=== PATIENT | female | born 1940 | race Caucasian/White ===

== ENCOUNTER 2016-03-15 13:50 | Inpatient (IN) | payer MEDICARE, OTHER ==
[~2016-03-15] VITALS: Ht 167.6 cm; Wt 84.2 kg
[2016-03-15] VITALS (24 sets, daily range): BP systolic 71–139; BP diastolic 47–94
[2016-03-15] MEDS ORDERED: AMIODARONE HCL 900 MG IV ONE (13:55)
[2016-03-15] MEDS ORDERED: AMIODARONE HCL 900 MG in DEXTROSE 500 ML IV SCH ×3 (14:14→21:15)
[2016-03-15] MEDS: NOREPINEPHRINE BITARTRATE 250 ML IV SCH (14:15)
[2016-03-15] MEDS ORDERED: AMIODARONE HCL 150 MG in D5W 5% 100 ML IV ONE (14:15)
[2016-03-15] MEDS ORDERED: ENOXAPARIN SOD 100 MG/1 ML SYRINGE SC ONE (14:15)
[2016-03-15 14:16] LABS: DEFINITIVE VIEW TRANSMISSION; Hematocrit 45.4 % (36.0-46.0); Mean Corpuscular Hemoglobin 31.9 pg (28.0-32.0); Mean Corpuscular Hgb Conc. 33.1 g/dL (32.0-36.0); Mean Corpuscular Volume 96.3 fL (80.0-100.0); Mean Platelet Volume 9.4 fL (7.4-10.4); Red Cell Distribution Width 13.9 % (11.6-16.0); SUSPECT VIEW TRANSMISSION
[2016-03-15 14:19] LABS: Metamyelocytes % 0; Myelocytes % 0; Promyelocytes % 0; Reactive Lymphocytes 0
[2016-03-15] MEDS ORDERED: SODIUM BICARBONATE 8.4% INJ 50ML SYRINGE ONE (14:31)
[2016-03-15] MEDS ORDERED: EPINEPHrine HCL 1 MG/10 ML SYRG IV ONE (14:45)
[2016-03-15] MEDS ORDERED: SODIUM BICARBONATE 8.4% INJ 50ML SYRINGE IV ONE (14:45)
[2016-03-15] MEDS ORDERED: SODIUM BICARBONATE 8.4 % INJ 50ML VIAL IV ONE ×2 (14:45)
[2016-03-15] MEDS: MIDAZOLAM DRIP 100 mg/100mL NS 100 ML IV SCH ×2 (15:05)
[2016-03-15] MEDS ORDERED: PROPOFOL 100 ML IV SCH ×2 (15:05)
[2016-03-15] MEDS ORDERED: MORPHINE SULF INJ 2 MG/ML SYRINGE 1ML IV PRN (15:15)
[2016-03-15] MEDS ORDERED: ONDANSETRON HCL 4 MG/2 ML VIAL IV PRN (15:15)
[2016-03-15] MEDS ORDERED: NITROGLYCERIN 0.4 MG SL TAB SL PRN (15:15)
[2016-03-15 15:16] LABS: Platelet Clumps MANY; Platelet Estimate Adequate
[2016-03-15 15:17] LABS: Platelet Count (auto) 318 10^3/uL (140-450)
[2016-03-15 15:24] LABS: Albumin 2.9 g/dL (3.4-5.0); BUN/Creatinine Ratio 13.6; Bilirubin, Total 0.2 mg/dL (0.2-1.0); Calcium 7.7 mg/dL (8.5-10.1); Lactic Acid 13.4 mmol/L (0.4-2.0); Magnesium 2.8 mg/dL (1.6-2.6); Total Protein 6.3 g/dL (6.4-8.2)
[2016-03-15 15:28] LABS: INR 1.08 (0.9-1.15); Partial Thromboplastin Time 24.6 sec (22.64-33.71); Prothrombin Time 11.1 sec (9.37-12.3)
[2016-03-15] MEDS ORDERED: cefTRIAXone 1GM/50ML D5W 50 ML IV ONE (15:30)
[2016-03-15] MEDS ORDERED: VANCOMYCIN PER PHARMACY 0 MG IV SCH (15:30)
[2016-03-15 15:59] LABS: REFLEX LACTIC ACID YES OR NO YES
[2016-03-15 16:07] LABS: Potassium 2.7 mmol/L (3.5-5.1)
[2016-03-15] MEDS ORDERED: POTASSIUM CHL 20MEQ/100ML 100 ML IV ONE (16:15)
[2016-03-15] MEDS ORDERED: LIDOCAINE 1% IV SCH (16:15)
[2016-03-15] MEDS ORDERED: POTASSIUM CHL IV SCH (16:15)
[2016-03-15] MEDS ORDERED: ENOXAPARIN SOD 80 MG/0.8ML SYRINGE SC ONE ×2 (16:15)
[2016-03-15] MEDS: SODIUM CHLORIDE 0.9% 1,000 ML IV SCH (16:29)
[2016-03-15] MEDS ORDERED: POTASSIUM CHL 20MEQ/100ML 100 ML IV SCH (16:30)
[2016-03-15] MEDS ORDERED: DEXTROSE (50%) 50ML SYRG IV PRN (16:45)
[2016-03-15] MEDS ORDERED: ASPirin 81 mg TAB PO ONE (16:45)
[2016-03-15 17:10] LABS: Lactic Acid 7.3 mmol/L (0.4-2.0)
[2016-03-15 17:11] LABS: REFLEX LACTIC ACID YES OR NO NO
[2016-03-15 17:22] LABS: Urine Bilirubin Negative (Negative); Urine Color Yellow (Yellow); Urine Mucus FEW (None Seen); Urine Nitrite Negative (Negative); Urine RBC 10 /hpf (0 - 4); Urine Squamous Epithelial Cell FEW /hpf (<5); Urine Urobilinogen Normal (Negative)
[2016-03-15 17:25] LABS: Urine Blood 2+ /uL (Negative); Urine Glucose 4+ mg/dL (Normal); Urine Ketone 1+ (Negative)
[2016-03-15] MEDS: LIDOCAINE 1% IV SCH ×2 (17:50→19:45)
[2016-03-15] MEDS: POTASSIUM CHL IV SCH ×2 (17:50→19:45)
[2016-03-15 18:08] LABS: B-Type Natriuretic Peptide 17.3 pg/mL (0-100)
[2016-03-15] MEDS: ACCU-CHEK COMFORT CURVE STRIP VI SCH (18:34)
[2016-03-15] MEDS: InsuLIN REG 1unit/0.01ml Soln (100units/ml) SC SCH (18:35)
[2016-03-15 18:41] LABS: Temperature: 21.4 C (20.0-25.0)
[2016-03-15] MEDS: PROPOFOL 100 ML IV SCH (20:00)
[2016-03-16] VITALS (99 sets, daily range): BP systolic 78–124; BP diastolic 48–78
[2016-03-16] MEDS: ACCU-CHEK COMFORT CURVE STRIP VI SCH ×4 (00:08→18:22)
[2016-03-16] MEDS: SODIUM BICARBONATE 50ML VIAL 150 ML in D5W 5% 1,000 ML IV SCH ×2 (00:38→10:50)
[2016-03-16] MEDS: MIDAZOLAM DRIP 100 mg/100mL NS 100 ML IV SCH ×2 (01:47→15:22)
[2016-03-16] MEDS: SODIUM CHLORIDE 0.9% 1,000 ML IV SCH (03:52)
[2016-03-16 03:54] LABS: Hemoglobin 13.9 g/dL (12.2-16.2); Mean Corpuscular Hemoglobin 31.4 pg (28.0-32.0); Mean Corpuscular Hgb Conc. 33.1 g/dL (32.0-36.0); Mean Corpuscular Volume 95.1 fL (80.0-100.0); Platelet Count (auto) 352 10^3/uL (140-450); Red Cell Distribution Width 14.3 % (11.6-16.0); SUSPECT VIEW TRANSMISSION; White Blood Cell 24.7 10^3/uL (4.4-10.8)
[2016-03-16 04:03] LABS: Metamyelocytes % 0; Myelocytes % 0; Promyelocytes % 0; Reactive Lymphocytes 0
[2016-03-16 04:17] LABS: Albumin 3.2 g/dL (3.4-5.0); BUN/Creatinine Ratio 20.6; Potassium 3.7 mmol/L (3.5-5.1)
[2016-03-16 04:20] LABS: Bilirubin, Total 0.2 mg/dL (0.2-1.0); Total Protein 6.5 g/dL (6.4-8.2)
[2016-03-16] MEDS: NOREPINEPHRINE BITARTRATE 250 ML IV SCH (04:30)
[2016-03-16 04:46] LABS: Hypersegmented Neutrophils Present; Platelet Estimate Adequate
[2016-03-16 04:47] LABS: RBC Morphology Normal
[2016-03-16] MEDS ORDERED: ENOXAPARIN SOD 80 MG/0.8ML SYRINGE SC SCH ×2 (06:00→18:00)
[2016-03-16] MEDS: InsuLIN REG 1unit/0.01ml Soln (100units/ml) SC SCH ×4 (06:11→18:22)
[2016-03-16] MEDS ORDERED: DOPamine 1600MCG/ML 250 ML IV ONE (07:34)
[2016-03-16] MEDS: DOPamine 1600MCG/ML 250 ML IV SCH (07:46)
[2016-03-16] MEDS: VANCOMYCIN 1GM/250ML D5W 250 ML IV SCH ×2 (07:50→18:21)
[2016-03-16] MEDS ORDERED: cefTRIAXone 1GM/50ML D5W 50 ML IV SCH (09:00)
[2016-03-16] MEDS ORDERED: CLOPIDOGREL 300 MG TAB PO ONE ×2 (09:45→13:30)
[2016-03-16] MEDS ORDERED: ANAS1TAB6 PO (09:59)
[2016-03-16] MEDS ORDERED: DIAZ10TA3 PO (09:59)
[2016-03-16] MEDS ORDERED: SERT-160 PO (09:59)
[2016-03-16] MEDS ORDERED: NAP500T PO (09:59)
[2016-03-16] MEDS: ASPirin 81 mg TAB PO SCH (10:00)
[2016-03-16] MEDS: POTASSIUM CHL 20MEQ/100ML 100 ML IV SCH ×2 (10:21→15:22)
[2016-03-16] MEDS ORDERED: LIDOCAINE 2%HCL (LOCAL ANESTH.) INJ 20ML MDV ONE (11:00)
[2016-03-16] MEDS ORDERED: IODIXANOL 320MG/ML 100ML BTL IV ONE (11:00)
[2016-03-16] MEDS ORDERED: PIPERACILLIN-TAZOB 3.375GM/D5W100ML IV SCH (12:00)
[2016-03-16] MEDS ORDERED: ATROPINE SULF 0.5 MG/5ML SYR ONE (12:10)
[2016-03-16] MEDS ORDERED: ANGIOMAX 250 MG VIAL IV ONE ×2 (12:10→13:10)
[2016-03-16] MEDS ORDERED: SODIUM CHL 0.9% 50 ML ONE ×2 (12:10→13:10)
[2016-03-16] MEDS ORDERED: EPINEPHrine HCL 1 MG/10 ML SYRG ONE (12:10)
[2016-03-16] MEDS ORDERED: EPTIFIBATIDE INJ (2MG/ML) 10ML VIAL IV ONE ×2 (12:10→12:37)
[2016-03-16] MEDS ORDERED: ADENOSINE 6 MG/2 ML INJ IV ONE (12:40)
[2016-03-16] MEDS ORDERED: ASPirin 325 MG TAB PO ONE (13:30)
[2016-03-16] MEDS: PROPOFOL 100 ML IV SCH (16:01)
[2016-03-16] MEDS: PIPERACILLIN-TAZOB 3.375GM/D5W100ML IV SCH (21:59)
[2016-03-16] MEDS: ACETYLCYSTEINE ORAL for CIN 20%(200MG/ML) 4ML PO SCH (22:00)
[2016-03-17] VITALS (108 sets, daily range): BP systolic 87–142; BP diastolic 47–102
[2016-03-17] MEDS: InsuLIN REG 1unit/0.01ml Soln (100units/ml) SC SCH ×4 (00:15→18:00)
[2016-03-17] MEDS: DOPamine 1600MCG/ML 250 ML IV SCH ×2 (00:36→16:47)
[2016-03-17] MEDS: PIPERACILLIN-TAZOB 3.375GM/D5W100ML IV SCH ×4 (03:06→20:42)
[2016-03-17 04:14] LABS: Lactic Acid 3.3 mmol/L (0.4-2.0)
[2016-03-17 04:20] LABS: Albumin 2.9 g/dL (3.4-5.0); BUN/Creatinine Ratio 23.3; Bilirubin, Total 0.7 mg/dL (0.2-1.0); Calcium 8.5 mg/dL (8.5-10.1); Potassium 3.7 mmol/L (3.5-5.1); Total Protein 6.5 g/dL (6.4-8.2)
[2016-03-17 04:26] LABS: REFLEX LACTIC ACID YES OR NO NO
[2016-03-17 04:29] LABS: DEFINITIVE VIEW TRANSMISSION; Hematocrit 39.8 % (36.0-46.0); Hemoglobin 13.2 g/dL (12.2-16.2); Mean Corpuscular Hemoglobin 31.5 pg (28.0-32.0); Mean Corpuscular Hgb Conc. 33.1 g/dL (32.0-36.0); Mean Corpuscular Volume 95.2 fL (80.0-100.0); Mean Platelet Volume 9.7 fL (7.4-10.4); Platelet Count (auto) 273 10^3/uL (140-450); Red Cell Distribution Width 14.2 % (11.6-16.0); SUSPECT VIEW TRANSMISSION; White Blood Cell 25.4 10^3/uL (4.4-10.8)
[2016-03-17 05:01] LABS: Metamyelocytes % 0; Myelocytes % 0; Promyelocytes % 0; Reactive Lymphocytes 0
[2016-03-17 05:22] LABS: B-Type Natriuretic Peptide 543.12 pg/mL (0-100); Temperature: 22.3 C (20.0-25.0)
[2016-03-17 05:37] LABS: Hypersegmented Neutrophils Present; Platelet Estimate Adequate
[2016-03-17] MEDS: ACCU-CHEK COMFORT CURVE STRIP VI SCH ×4 (06:17→18:00)
[2016-03-17] MEDS ORDERED: ACETAMINOPHEN 650 mg PER 20 mL UD ONE (06:22)
[2016-03-17] MEDS ORDERED: ACETAMINOPHEN 650 mg PER 20 mL UD GT PRN (06:30)
[2016-03-17] MEDS: NOREPINEPHRINE BITARTRATE 250 ML IV SCH (09:06)
[2016-03-17] MEDS: CLOPIDOGREL BISULFATE 75 MG TAB PO SCH (10:10)
[2016-03-17] MEDS: ASPirin 81 mg TAB PO SCH (10:10)
[2016-03-17] MEDS: ACETYLCYSTEINE ORAL for CIN 20%(200MG/ML) 4ML PO SCH ×2 (10:17→22:00)
[2016-03-17] MEDS: LINEZOLID 600MG/300ML 300 ML IV SCH ×2 (10:20→22:46)
[2016-03-17] MEDS: MIDAZOLAM DRIP 100 mg/100mL NS 100 ML IV SCH (15:05)
[2016-03-17] MEDS ORDERED: CARVEDILOL 3.125 MG TAB ONE (22:11)
[2016-03-17] MEDS ORDERED: CARVEDILOL 3.125 MG TAB PO ONE (22:15)
[2016-03-17 22:26] LABS: Basophils # (auto) 0 uL; Basophils % (auto) 0.1 % (0.0-2.0); Eosinophils # (auto) 0 uL; Hemoglobin 12.7 g/dL (12.2-16.2); Lymphocytes # (auto) 2.2 uL; Lymphocytes % (auto) 10.2 % (10.0-50.0); Mean Corpuscular Hemoglobin 31.8 pg (28.0-32.0); Mean Corpuscular Hgb Conc. 33.6 g/dL (32.0-36.0); Mean Corpuscular Volume 94.7 fL (80.0-100.0); Mean Platelet Volume 9.3 fL (7.4-10.4); Monocytes # (auto) 1.1 uL; Neutrophils # (auto) 17.9 uL; Neutrophils % (auto) 84.7 % (37.0-80.0); Platelet Count (auto) 216 10^3/uL (140-450); Red Cell Distribution Width 14.6 % (11.6-16.0); White Blood Cell 21.1 10^3/uL (4.4-10.8)
[2016-03-17 22:45] LABS: Albumin 2.7 g/dL (3.4-5.0); Bilirubin, Total 0.8 mg/dL (0.2-1.0); Calcium 8.4 mg/dL (8.5-10.1); Potassium 3.2 mmol/L (3.5-5.1); Total Protein 6.5 g/dL (6.4-8.2)
[2016-03-18] VITALS (96 sets, daily range): BP systolic 97–137; BP diastolic 44–88
[2016-03-18] MEDS: POTASSIUM CHL 20MEQ/100ML 100 ML IV SCH ×2 (00:16→01:55)
[2016-03-18] MEDS: InsuLIN REG 1unit/0.01ml Soln (100units/ml) SC SCH ×5 (00:17→23:41)
[2016-03-18] MEDS: ACCU-CHEK COMFORT CURVE STRIP VI SCH ×5 (00:20→23:41)
[2016-03-18] MEDS: PIPERACILLIN-TAZOB 3.375GM/D5W100ML IV SCH ×4 (03:11→20:17)
[2016-03-18 07:36] LABS: Hematocrit 34.9 % (36.0-46.0); Hemoglobin 11.7 g/dL (12.2-16.2); Mean Corpuscular Hgb Conc. 33.6 g/dL (32.0-36.0); Mean Corpuscular Volume 95.4 fL (80.0-100.0); Mean Platelet Volume 9.3 fL (7.4-10.4); Platelet Count (auto) 213 10^3/uL (140-450); Red Cell Distribution Width 14.5 % (11.6-16.0); White Blood Cell 20.2 10^3/uL (4.4-10.8)
[2016-03-18 07:39] LABS: Metamyelocytes % 0; Myelocytes % 0; Promyelocytes % 0; Reactive Lymphocytes 0
[2016-03-18 07:48] LABS: Albumin 2.4 g/dL (3.4-5.0); Potassium 3.4 mmol/L (3.5-5.1)
[2016-03-18 07:51] LABS: Bilirubin, Total 0.7 mg/dL (0.2-1.0); Total Protein 6.1 g/dL (6.4-8.2)
[2016-03-18] MEDS: DOPamine 1600MCG/ML 250 ML IV SCH (09:23)
[2016-03-18 09:50] LABS: Platelet Estimate Adequate
[2016-03-18] MEDS: LINEZOLID 600MG/300ML 300 ML IV SCH ×2 (09:59→21:57)
[2016-03-18] MEDS: CLOPIDOGREL BISULFATE 75 MG TAB PO SCH (10:00)
[2016-03-18] MEDS: ASPirin 81 mg TAB PO SCH (10:00)
[2016-03-18] MEDS: CARVEDILOL 3.125 MG TAB PO SCH ×2 (10:00→21:59)
[2016-03-18] MEDS: ACETYLCYSTEINE ORAL for CIN 20%(200MG/ML) 4ML PO SCH (10:05)
[2016-03-18] MEDS ORDERED: D5W/SOD CHL 0.45%/KCL 20MEQ 1,000 ML IV SCH (12:45)
[2016-03-18] MEDS: NOREPINEPHRINE BITARTRATE 250 ML IV SCH (14:15)
[2016-03-18] MEDS: MIDAZOLAM DRIP 100 mg/100mL NS 100 ML IV SCH (15:05)
[2016-03-18] MEDS ORDERED: FUROSEMIDE 20 MG/2 ML VIAL ONE (15:22)
[2016-03-19] VITALS (50 sets, daily range): BP systolic 92–152; BP diastolic 44–105
[2016-03-19] MEDS: DOPamine 1600MCG/ML 250 ML IV SCH (01:59)
[2016-03-19] MEDS: PIPERACILLIN-TAZOB 3.375GM/D5W100ML IV SCH ×4 (02:39→21:15)
[2016-03-19 04:14] LABS: Albumin 2.3 g/dL (3.4-5.0); BUN/Creatinine Ratio 36.2; Calcium 7.9 mg/dL (8.5-10.1); Potassium 3.8 mmol/L (3.5-5.1)
[2016-03-19 04:16] LABS: Bilirubin, Total 0.5 mg/dL (0.2-1.0); Total Protein 6.1 g/dL (6.4-8.2)
[2016-03-19 04:30] LABS: Hematocrit 32.7 % (36.0-46.0); Mean Corpuscular Hemoglobin 32.3 pg (28.0-32.0); Mean Corpuscular Hgb Conc. 33.6 g/dL (32.0-36.0); Mean Corpuscular Volume 96.1 fL (80.0-100.0); Red Cell Distribution Width 14.8 % (11.6-16.0); SUSPECT VIEW TRANSMISSION; White Blood Cell 18.7 10^3/uL (4.4-10.8)
[2016-03-19 04:32] LABS: Platelet Count (auto) 181 10^3/uL (140-450)
[2016-03-19 04:33] LABS: Metamyelocytes % 0; Myelocytes % 0; Promyelocytes % 0; Reactive Lymphocytes 0
[2016-03-19] MEDS ORDERED: DILTIAZEM HCL 25 MG/5 ML VIAL IV ONE ×2 (05:26→05:30)
[2016-03-19 05:29] LABS: Anisocytosis Slight; Platelet Estimate Adequate; Polychromasia Slight; Stomatocytes Few
[2016-03-19] MEDS: ACCU-CHEK COMFORT CURVE STRIP VI SCH ×3 (06:22→18:20)
[2016-03-19] MEDS: InsuLIN REG 1unit/0.01ml Soln (100units/ml) SC SCH ×3 (06:23→18:21)
[2016-03-19] MEDS ORDERED: AMIODARONE HCL 150 MG in D5W 5% 100 ML IV ONE (08:15)
[2016-03-19] MEDS ORDERED: AMIODARONE HCL 900 MG in DEXTROSE 500 ML IV SCH (08:22)
[2016-03-19] MEDS: APIXABAN 2.5 MG TAB PO SCH ×2 (10:00→22:00)
[2016-03-19] MEDS ORDERED: POTASSIUM CHL 10% (20 MEQ/15ML) ORAL SOLN GT ONE (10:00)
[2016-03-19] MEDS: CLOPIDOGREL BISULFATE 75 MG TAB PO SCH (10:28)
[2016-03-19] MEDS: ASPirin 81 mg TAB PO SCH (10:28)
[2016-03-19] MEDS: CARVEDILOL 3.125 MG TAB PO SCH ×2 (10:29→22:10)
[2016-03-19] MEDS: LINEZOLID 600MG/300ML 300 ML IV SCH ×2 (10:29→23:10)
[2016-03-19] MEDS: AMIODARONE HCL 900 MG in DEXTROSE 500 ML IV SCH (14:22)
[2016-03-19] MEDS ORDERED: LORazepam 2MG/ML-1ML VIAL IV PRN (15:45)
[2016-03-19] MEDS ORDERED: SODIUM CHLORIDE 0.9% 1,000 ML IV SCH (16:00)
[2016-03-19] MEDS: SOD CHL 0.9%/ KCL 20MEQ 1,000 ML IV SCH (18:19)
[2016-03-19] MEDS: ALBUTEROL SULF 2.5 MG/0.5ML(0.5%) NEB SOLN NEB SCH (19:49)
[2016-03-19] MEDS: IPRATROPIUM BROM 0.5 MG/2.5ML INH SOL NEB SCH (19:49)
[2016-03-19] MEDS: MORPHINE SULF INJ 2 MG/ML SYRINGE 1ML IV PRN (23:56)
[2016-03-20] VITALS (45 sets, daily range): BP systolic 100–143; BP diastolic 58–102
[2016-03-20] MEDS: ACCU-CHEK COMFORT CURVE STRIP VI SCH ×4 (00:14→17:26)
[2016-03-20] MEDS: InsuLIN REG 1unit/0.01ml Soln (100units/ml) SC SCH ×4 (00:30→17:27)
[2016-03-20] MEDS: PIPERACILLIN-TAZOB 3.375GM/D5W100ML IV SCH ×4 (02:54→21:01)
[2016-03-20 03:46] LABS: Hematocrit 36.6 % (36.0-46.0); Hemoglobin 12.1 g/dL (12.2-16.2); Mean Corpuscular Hemoglobin 31.9 pg (28.0-32.0); Mean Corpuscular Hgb Conc. 32.9 g/dL (32.0-36.0); Mean Corpuscular Volume 96.8 fL (80.0-100.0); Platelet Count (auto) 284 10^3/uL (140-450); Red Cell Distribution Width 14.6 % (11.6-16.0); SUSPECT VIEW TRANSMISSION; White Blood Cell 22.5 10^3/uL (4.4-10.8)
[2016-03-20 03:52] LABS: Metamyelocytes % 0; Myelocytes % 0; Promyelocytes % 0; Reactive Lymphocytes 0
[2016-03-20 04:07] LABS: BUN/Creatinine Ratio 48.9; Calcium 8.3 mg/dL (8.5-10.1); Potassium 3.7 mmol/L (3.5-5.1)
[2016-03-20 04:21] LABS: Platelet Estimate Adequate; Polychromasia Slight; Stomatocytes Few
[2016-03-20] MEDS: AMIODARONE HCL 900 MG in DEXTROSE 500 ML IV SCH (06:13)
[2016-03-20] MEDS: IPRATROPIUM BROM 0.5 MG/2.5ML INH SOL NEB SCH ×4 (06:27→18:57)
[2016-03-20] MEDS: ALBUTEROL SULF 2.5 MG/0.5ML(0.5%) NEB SOLN NEB SCH ×4 (06:27→18:57)
[2016-03-20] MEDS: APIXABAN 2.5 MG TAB PO SCH ×2 (10:00→22:00)
[2016-03-20] MEDS: SOD CHL 0.9%/ KCL 20MEQ 1,000 ML IV SCH (10:25)
[2016-03-20] MEDS: LINEZOLID 600MG/300ML 300 ML IV SCH ×2 (11:09→22:00)
[2016-03-20] MEDS: CLOPIDOGREL BISULFATE 75 MG TAB PO SCH (11:11)
[2016-03-20] MEDS: CARVEDILOL 3.125 MG TAB PO SCH ×2 (11:12→23:16)
[2016-03-21] VITALS (45 sets, daily range): BP systolic 104–135; BP diastolic 31–98
[2016-03-21] MEDS: InsuLIN REG 1unit/0.01ml Soln (100units/ml) SC SCH ×4 (00:21→17:31)
[2016-03-21] MEDS: ACCU-CHEK COMFORT CURVE STRIP VI SCH ×4 (00:22→17:26)
[2016-03-21] MEDS: PIPERACILLIN-TAZOB 3.375GM/D5W100ML IV SCH ×4 (03:10→20:55)
[2016-03-21 04:01] LABS: Hematocrit 37.7 % (36.0-46.0); Hemoglobin 12.3 g/dL (12.2-16.2); Mean Corpuscular Hemoglobin 31.9 pg (28.0-32.0); Mean Corpuscular Hgb Conc. 32.5 g/dL (32.0-36.0); Mean Corpuscular Volume 98.1 fL (80.0-100.0); Mean Platelet Volume 9.8 fL (7.4-10.4); Platelet Count (auto) 283 10^3/uL (140-450); Red Cell Distribution Width 14.4 % (11.6-16.0); SUSPECT VIEW TRANSMISSION
[2016-03-21 04:07] LABS: Metamyelocytes % 0; Promyelocytes % 0; Reactive Lymphocytes 0
[2016-03-21 04:25] LABS: Myelocytes % 1
[2016-03-21 04:26] LABS: Anisocytosis Slight; Platelet Estimate Adequate; Polychromasia Slight
[2016-03-21 04:30] LABS: Albumin 2.5 g/dL (3.4-5.0); Bilirubin, Total 0.7 mg/dL (0.2-1.0); Calcium 8.5 mg/dL (8.5-10.1); Total Protein 6.5 g/dL (6.4-8.2)
[2016-03-21 04:51] LABS: B-Type Natriuretic Peptide 1602.31 pg/mL (0-100); Temperature: 21.9 C (20.0-25.0)
[2016-03-21] MEDS: IPRATROPIUM BROM 0.5 MG/2.5ML INH SOL NEB SCH ×4 (05:40→19:18)
[2016-03-21] MEDS: ALBUTEROL SULF 2.5 MG/0.5ML(0.5%) NEB SOLN NEB SCH ×4 (05:40→19:18)
[2016-03-21] MEDS: LINEZOLID 600MG/300ML 300 ML IV SCH ×2 (10:39→22:05)
[2016-03-21] MEDS: CARVEDILOL 3.125 MG TAB PO SCH ×2 (10:40→22:06)
[2016-03-21] MEDS: CLOPIDOGREL BISULFATE 75 MG TAB PO SCH (10:40)
[2016-03-21] MEDS: APIXABAN 2.5 MG TAB PO SCH ×2 (10:40→22:05)
[2016-03-21] MEDS ORDERED: VANCOMYCIN PER PHARMACY 0 MG IV SCH (11:00)
[2016-03-21] MEDS: SODIUM CHLORIDE 0.9% 1,000 ML IV SCH (22:00)
[2016-03-21] MEDS ORDERED: APIXABAN 5 MG TAB PO SCH (22:00)
[2016-03-21] MEDS: AMIODARONE HCL 200 MG TAB PO SCH (22:05)
[2016-03-21] MEDS: ENALAPRIL MALEATE 2.5 MG TAB PO SCH (22:06)
[2016-03-22] VITALS (55 sets, daily range): BP systolic 83–123; BP diastolic 34–81
[2016-03-22] MEDS: InsuLIN REG 1unit/0.01ml Soln (100units/ml) SC SCH ×4 (00:26→17:57)
[2016-03-22] MEDS: ACCU-CHEK COMFORT CURVE STRIP VI SCH ×4 (00:27→17:55)
[2016-03-22] MEDS: PIPERACILLIN-TAZOB 3.375GM/D5W100ML IV SCH ×4 (02:40→21:31)
[2016-03-22 04:02] LABS: Hematocrit 36.9 % (36.0-46.0); Hemoglobin 11.9 g/dL (12.2-16.2); Mean Corpuscular Hemoglobin 31.8 pg (28.0-32.0); Mean Corpuscular Hgb Conc. 32.1 g/dL (32.0-36.0); Mean Corpuscular Volume 98.8 fL (80.0-100.0); Mean Platelet Volume 9.2 fL (7.4-10.4); Platelet Count (auto) 284 10^3/uL (140-450); Red Cell Distribution Width 14.7 % (11.6-16.0); SUSPECT VIEW TRANSMISSION; White Blood Cell 20.2 10^3/uL (4.4-10.8)
[2016-03-22 04:05] LABS: Lactic Acid 2.3 mmol/L (0.4-2.0)
[2016-03-22 04:09] LABS: Albumin 2.4 g/dL (3.4-5.0); BUN/Creatinine Ratio 49.6; Bilirubin, Total 0.6 mg/dL (0.2-1.0); Calcium 8.3 mg/dL (8.5-10.1); Magnesium 2.8 mg/dL (1.6-2.6); Potassium 4.1 mmol/L (3.5-5.1); Total Protein 6.1 g/dL (6.4-8.2)
[2016-03-22 04:12] LABS: REFLEX LACTIC ACID YES OR NO YES
[2016-03-22 04:31] LABS: Metamyelocytes % 0; Promyelocytes % 0; Reactive Lymphocytes 0
[2016-03-22] MEDS ORDERED: FUROSEMIDE 20 MG/2 ML VIAL ONE (05:11)
[2016-03-22] MEDS: SODIUM CHLORIDE 0.9% 1,000 ML IV SCH (06:13)
[2016-03-22 06:14] LABS: Lactic Acid 2.1 mmol/L (0.4-2.0)
[2016-03-22 06:17] LABS: Hypersegmented Neutrophils Present; Myelocytes % 1
[2016-03-22 06:18] LABS: Anisocytosis Slight; Platelet Estimate Adequate
[2016-03-22] MEDS: ALBUTEROL SULF 2.5 MG/0.5ML(0.5%) NEB SOLN NEB SCH ×3 (06:22→19:55)
[2016-03-22] MEDS: IPRATROPIUM BROM 0.5 MG/2.5ML INH SOL NEB SCH ×3 (06:22→19:55)
[2016-03-22 06:46] LABS: REFLEX LACTIC ACID YES OR NO YES
[2016-03-22 09:58] LABS: Lactic Acid 2.3 mmol/L (0.4-2.0)
[2016-03-22] MEDS: ENALAPRIL MALEATE 2.5 MG TAB PO SCH (10:00)
[2016-03-22 10:26] LABS: REFLEX LACTIC ACID YES OR NO YES
[2016-03-22] MEDS: CARVEDILOL 3.125 MG TAB PO SCH (10:41)
[2016-03-22] MEDS: CLOPIDOGREL BISULFATE 75 MG TAB PO SCH (10:41)
[2016-03-22] MEDS: APIXABAN 2.5 MG TAB PO SCH (10:41)
[2016-03-22] MEDS: LINEZOLID 600MG/300ML 300 ML IV SCH ×2 (10:41→21:32)
[2016-03-22] MEDS: AMIODARONE HCL 200 MG TAB PO SCH (10:42)
[2016-03-22] MEDS ORDERED: FUROSEMIDE 20 MG/2 ML VIAL IV ONE (13:15)
[2016-03-22] MEDS ORDERED: FUROSEMIDE 40 MG/4 ML VIAL ONE (13:21)
[2016-03-22] MEDS ORDERED: FUROSEMIDE 40 MG/4 ML VIAL IV ONE (13:30)
[2016-03-22] MEDS ORDERED: POTASSIUM CHL 10% (20 MEQ/15ML) ORAL SOLN PO ONE (17:45)
[2016-03-22] MEDS: FLUCONAZOLE 200MG/100ML 100 ML IV SCH (18:00)
[2016-03-23] VITALS (69 sets, daily range): BP systolic 89–156; BP diastolic 46–97
[2016-03-23] MEDS: APIXABAN 2.5 MG TAB PO SCH ×3 (00:39→21:35)
[2016-03-23] MEDS: AMIODARONE HCL 200 MG TAB PO SCH ×3 (00:39→21:35)
[2016-03-23] MEDS: CARVEDILOL 3.125 MG TAB PO SCH ×3 (00:40→21:36)
[2016-03-23] MEDS: ENALAPRIL MALEATE 2.5 MG TAB PO SCH ×3 (00:41→21:46)
[2016-03-23] MEDS: ACCU-CHEK COMFORT CURVE STRIP VI SCH ×4 (00:42→18:30)
[2016-03-23] MEDS: InsuLIN REG 1unit/0.01ml Soln (100units/ml) SC SCH ×4 (00:44→18:30)
[2016-03-23] MEDS: PIPERACILLIN-TAZOB 3.375GM/D5W100ML IV SCH ×4 (03:30→21:00)
[2016-03-23 04:03] LABS: Hematocrit 36.3 % (36.0-46.0); Hemoglobin 11.7 g/dL (12.2-16.2); Mean Corpuscular Hemoglobin 31.6 pg (28.0-32.0); Mean Corpuscular Hgb Conc. 32.2 g/dL (32.0-36.0); Mean Corpuscular Volume 98.3 fL (80.0-100.0); Mean Platelet Volume 8.7 fL (7.4-10.4); Platelet Count (auto) 298 10^3/uL (140-450); Red Cell Distribution Width 14.5 % (11.6-16.0); White Blood Cell 19.6 10^3/uL (4.4-10.8)
[2016-03-23 04:20] LABS: Promyelocytes % 0; Reactive Lymphocytes 0
[2016-03-23 04:28] LABS: Albumin 2.5 g/dL (3.4-5.0); BUN/Creatinine Ratio 56.2; Bilirubin, Total 0.7 mg/dL (0.2-1.0); Calcium 8.2 mg/dL (8.5-10.1); Total Protein 5.6 g/dL (6.4-8.2)
[2016-03-23 05:00] LABS: Metamyelocytes % 1; Myelocytes % 1
[2016-03-23 05:01] LABS: Anisocytosis Slight; Hypersegmented Neutrophils Present; Platelet Estimate Adequate
[2016-03-23 05:31] LABS: Temperature: 20.7 C (20.0-25.0)
[2016-03-23] MEDS: IPRATROPIUM BROM 0.5 MG/2.5ML INH SOL NEB SCH ×3 (07:14→19:20)
[2016-03-23] MEDS: ALBUTEROL SULF 2.5 MG/0.5ML(0.5%) NEB SOLN NEB SCH ×3 (07:14→19:20)
[2016-03-23] MEDS: CLOPIDOGREL BISULFATE 75 MG TAB PO SCH (09:47)
[2016-03-23] MEDS ORDERED: FUROSEMIDE 40 MG TAB PO SCH (10:00)
[2016-03-23] MEDS: LINEZOLID 600MG/300ML 300 ML IV SCH ×2 (13:15→23:35)
[2016-03-23] MEDS ORDERED: FUROSEMIDE 40 MG/4 ML VIAL ONE (13:39)
[2016-03-23] MEDS ORDERED: FUROSEMIDE 40 MG/4 ML VIAL IV ONE (13:45)
[2016-03-23] MEDS: FLUCONAZOLE 200MG/100ML 100 ML IV SCH (14:49)
[2016-03-23] MEDS: Boost Glucose Control 8 Ounces PO SCH (18:00)
[2016-03-23] MEDS ORDERED: ASPirin 325 MG TAB PO ONE (18:00)
[2016-03-23] MEDS: LACTULOSE 20Gm/30ML SOLN PO SCH (19:36)
[2016-03-24] VITALS (73 sets, daily range): BP systolic 95–156; BP diastolic 39–104
[2016-03-24] MEDS: LACTULOSE 20Gm/30ML SOLN PO SCH ×4 (00:01→17:45)
[2016-03-24] MEDS: InsuLIN REG 1unit/0.01ml Soln (100units/ml) SC SCH ×4 (00:04→17:48)
[2016-03-24] MEDS: ACCU-CHEK COMFORT CURVE STRIP VI SCH ×4 (00:32→17:45)
[2016-03-24] MEDS: PIPERACILLIN-TAZOB 3.375GM/D5W100ML IV SCH ×4 (02:58→21:00)
[2016-03-24 03:57] LABS: Albumin 2.2 g/dL (3.4-5.0); Calcium 7.8 mg/dL (8.5-10.1); Potassium 3.8 mmol/L (3.5-5.1)
[2016-03-24 03:59] LABS: Basophils # (auto) 0.1 uL; Basophils % (auto) 0.4 % (0.0-2.0); Eosinophils # (auto) 0 uL; Hematocrit 34.4 % (36.0-46.0); Lymphocytes # (auto) 1.1 uL; Lymphocytes % (auto) 7.2 % (10.0-50.0); Mean Corpuscular Hgb Conc. 31.9 g/dL (32.0-36.0); Mean Corpuscular Volume 100.3 fL (80.0-100.0); Mean Platelet Volume 8.6 fL (7.4-10.4); Monocytes # (auto) 0.6 uL; Monocytes % (auto) 4.1 % (0.0-12.0); Neutrophils # (auto) 13.2 uL; Neutrophils % (auto) 88.3 % (37.0-80.0); Platelet Count (auto) 233 10^3/uL (140-450); Red Cell Distribution Width 15.4 % (11.6-16.0); White Blood Cell 14.9 10^3/uL (4.4-10.8)
[2016-03-24 04:00] LABS: BUN/Creatinine Ratio 19.1; Bilirubin, Total 0.6 mg/dL (0.2-1.0); Total Protein 5.7 g/dL (6.4-8.2)
[2016-03-24] MEDS: ALBUTEROL SULF 2.5 MG/0.5ML(0.5%) NEB SOLN NEB SCH ×3 (06:29→18:36)
[2016-03-24] MEDS: IPRATROPIUM BROM 0.5 MG/2.5ML INH SOL NEB SCH ×3 (06:29→18:36)
[2016-03-24] MEDS: Boost Glucose Control 8 Ounces PO SCH ×3 (08:00→18:00)
[2016-03-24 08:35] LABS: B-Type Natriuretic Peptide 1622.64 pg/mL (0-100); Temperature: 22.9 C (20.0-25.0)
[2016-03-24] MEDS: ASPirin-EC 81 mg tab PO SCH (10:00)
[2016-03-24] MEDS: ENALAPRIL MALEATE 2.5 MG TAB PO SCH ×2 (10:00→22:00)
[2016-03-24] MEDS: APIXABAN 2.5 MG TAB PO SCH ×2 (10:00→22:00)
[2016-03-24] MEDS: CLOPIDOGREL BISULFATE 75 MG TAB PO SCH (10:00)
[2016-03-24] MEDS: AMIODARONE HCL 200 MG TAB PO SCH ×2 (10:00→22:00)
[2016-03-24] MEDS: CARVEDILOL 3.125 MG TAB PO SCH ×2 (10:00→22:00)
[2016-03-24] MEDS ORDERED: FUROSEMIDE 40 MG/4 ML VIAL IV ONE (11:00)
[2016-03-24] MEDS ORDERED: ALBUMIN 25% 50 ML IV ONE (11:30)
[2016-03-24] MEDS ORDERED: DIGOXIN (250MCG/ML) 2 ML AMPULE IV ONE (14:00)
[2016-03-24] MEDS: DOXYCYCLINE HYC 100MG/250ML 250 ML IV SCH ×2 (14:57→23:49)
[2016-03-24] MEDS: POTASSIUM CHL 20MEQ/100ML 100 ML IV SCH ×2 (16:45→18:59)
[2016-03-24] MEDS: FLUCONAZOLE 200MG/100ML 100 ML IV SCH (16:45)
[2016-03-24] MEDS: FUROSEMIDE 40 MG/4 ML VIAL IV SCH (17:50)
[2016-03-25] VITALS (48 sets, daily range): BP systolic 100–144; BP diastolic 20–93
[2016-03-25] MEDS: ALBUTEROL SULF 2.5 MG/0.5ML(0.5%) NEB SOLN NEB SCH ×5 (00:39→19:13)
[2016-03-25] MEDS: IPRATROPIUM BROM 0.5 MG/2.5ML INH SOL NEB SCH ×5 (00:39→19:13)
[2016-03-25] MEDS: InsuLIN REG 1unit/0.01ml Soln (100units/ml) SC SCH ×4 (00:45→18:11)
[2016-03-25] MEDS: LACTULOSE 20Gm/30ML SOLN PO SCH ×4 (00:53→18:00)
[2016-03-25] MEDS: PIPERACILLIN-TAZOB 3.375GM/D5W100ML IV SCH ×5 (03:00→21:48)
[2016-03-25 04:10] LABS: Hemoglobin 11.4 g/dL (12.2-16.2); Mean Corpuscular Hemoglobin 31.6 pg (28.0-32.0); Mean Corpuscular Hgb Conc. 31.7 g/dL (32.0-36.0); Mean Corpuscular Volume 99.6 fL (80.0-100.0); Mean Platelet Volume 8.2 fL (7.4-10.4); Platelet Count (auto) 321 10^3/uL (140-450); SUSPECT VIEW TRANSMISSION; White Blood Cell 20.2 10^3/uL (4.4-10.8)
[2016-03-25 04:19] LABS: Metamyelocytes % 0; Promyelocytes % 0; Reactive Lymphocytes 0
[2016-03-25 04:26] LABS: BUN/Creatinine Ratio 43.8; Calcium 8.7 mg/dL (8.5-10.1); Potassium 4.3 mmol/L (3.5-5.1)
[2016-03-25 05:06] LABS: B-Type Natriuretic Peptide 1386.95 pg/mL (0-100); Temperature: 23.4 C (20.0-25.0)
[2016-03-25 05:12] LABS: Myelocytes % 1; Platelet Estimate Adequate
[2016-03-25 05:13] LABS: Anisocytosis Slight
[2016-03-25] MEDS: FUROSEMIDE 40 MG/4 ML VIAL IV SCH ×2 (05:15→20:03)
[2016-03-25] MEDS: ACCU-CHEK COMFORT CURVE STRIP VI SCH ×4 (06:18→18:09)
[2016-03-25] MEDS: Boost Glucose Control 8 Ounces PO SCH ×3 (08:00→18:00)
[2016-03-25] MEDS: ASPirin-EC 81 mg tab PO SCH (10:33)
[2016-03-25] MEDS: CLOPIDOGREL BISULFATE 75 MG TAB PO SCH (10:34)
[2016-03-25] MEDS: AMIODARONE HCL 200 MG TAB PO SCH (10:34)
[2016-03-25] MEDS: ENALAPRIL MALEATE 2.5 MG TAB PO SCH ×2 (10:34→20:14)
[2016-03-25] MEDS: APIXABAN 2.5 MG TAB PO SCH ×2 (10:34→20:13)
[2016-03-25] MEDS: DOXYCYCLINE HYC 100MG/250ML 250 ML IV SCH ×2 (10:35→23:45)
[2016-03-25] MEDS: CARVEDILOL 3.125 MG TAB PO SCH ×2 (10:35→20:15)
[2016-03-25] MEDS ORDERED: AMIODARONE HCL 900 MG in DEXTROSE 500 ML IV SCH ×3 (11:49→17:49)
[2016-03-25] MEDS ORDERED: DIGOXIN (250MCG/ML) 2 ML AMPULE IV ONE (12:45)
[2016-03-25] MEDS: FLUCONAZOLE 200MG/100ML 100 ML IV SCH (13:51)
[2016-03-25] MEDS ORDERED: BUMETANIDE (0.25MG/ML) 4 ML VIAL IV ONE (14:00)
[2016-03-25] MEDS ORDERED: ALBUMIN 25% 50 ML IV SCH (17:00)
[2016-03-25] MEDS: AMIODARONE HCL 900 MG in DEXTROSE 500 ML IV SCH (18:09)
[2016-03-25] MEDS: ALBUMIN 25% 50 ML IV SCH (20:05)
[2016-03-26] VITALS (83 sets, daily range): BP systolic 90–141; BP diastolic 47–82
[2016-03-26] MEDS: PIPERACILLIN-TAZOB 3.375GM/D5W100ML IV SCH ×3 (03:30→21:00)
[2016-03-26 04:52] LABS: Temperature: 20.8 C (20.0-25.0)
[2016-03-26] MEDS: ALBUMIN 25% 50 ML IV SCH ×3 (06:00→22:45)
[2016-03-26] MEDS: LACTULOSE 20Gm/30ML SOLN PO SCH ×5 (06:00→22:44)
[2016-03-26] MEDS: InsuLIN REG 1unit/0.01ml Soln (100units/ml) SC SCH ×4 (06:00→17:26)
[2016-03-26] MEDS: ACCU-CHEK COMFORT CURVE STRIP VI SCH ×4 (06:00→17:24)
[2016-03-26] MEDS: IPRATROPIUM BROM 0.5 MG/2.5ML INH SOL NEB SCH ×3 (06:51→18:14)
[2016-03-26] MEDS: ALBUTEROL SULF 2.5 MG/0.5ML(0.5%) NEB SOLN NEB SCH ×3 (06:51→18:14)
[2016-03-26] MEDS: Boost Glucose Control 8 Ounces PO SCH (08:00)
[2016-03-26] MEDS: FUROSEMIDE 40 MG/4 ML VIAL IV SCH ×2 (08:20→18:03)
[2016-03-26] MEDS: AMIODARONE HCL 900 MG in DEXTROSE 500 ML IV SCH (10:41)
[2016-03-26] MEDS: DOXYCYCLINE HYC 100MG/250ML 250 ML IV SCH (11:55)
[2016-03-26] MEDS: ASPirin-EC 81 mg tab PO SCH (12:59)
[2016-03-26] MEDS: CLOPIDOGREL BISULFATE 75 MG TAB PO SCH (12:59)
[2016-03-26] MEDS: APIXABAN 2.5 MG TAB PO SCH ×2 (12:59→22:00)
[2016-03-26] MEDS: ENALAPRIL MALEATE 2.5 MG TAB PO SCH ×2 (12:59→22:00)
[2016-03-26] MEDS: CARVEDILOL 3.125 MG TAB PO SCH ×2 (12:59→22:00)
[2016-03-26] MEDS ORDERED: Diabetisource AC 1 Liter GT SCH (13:00)
[2016-03-26 14:18] LABS: Hematocrit 33.3 % (36.0-46.0); Hemoglobin 10.6 g/dL (12.2-16.2); Mean Corpuscular Hgb Conc. 31.9 g/dL (32.0-36.0); Mean Corpuscular Volume 100.3 fL (80.0-100.0); Mean Platelet Volume 8.3 fL (7.4-10.4); Platelet Count (auto) 250 10^3/uL (140-450); Red Cell Distribution Width 15.4 % (11.6-16.0); SUSPECT VIEW TRANSMISSION; White Blood Cell 21.7 10^3/uL (4.4-10.8)
[2016-03-26 14:21] LABS: BUN/Creatinine Ratio 42.3; Calcium 8.2 mg/dL (8.5-10.1); Potassium 3.7 mmol/L (3.5-5.1)
[2016-03-26] MEDS: FREE WATER GT SCH ×2 (14:30→22:00)
[2016-03-26 14:37] LABS: Myelocytes % 0; Promyelocytes % 0; Reactive Lymphocytes 0
[2016-03-26 15:20] LABS: Partial Thromboplastin Time 29.1 sec (22.64-33.71)
[2016-03-26 15:43] LABS: INR 1.69 (0.9-1.15); Prothrombin Time 17.4 sec (9.37-12.3)
[2016-03-26 16:04] LABS: Metamyelocytes % 2
[2016-03-26 16:06] LABS: Platelet Estimate Adequate; Polychromasia Slight
[2016-03-26 16:07] LABS: Stomatocytes Moderate
[2016-03-26] MEDS: FLUCONAZOLE 200MG/100ML 100 ML IV SCH (17:23)
[2016-03-26] MEDS: MORPHINE SULF INJ 2 MG/ML SYRINGE 1ML IV PRN (23:01)
[2016-03-27] VITALS (79 sets, daily range): BP systolic 84–146; BP diastolic 24–91
[2016-03-27] MEDS: DOXYCYCLINE HYC 100MG/250ML 250 ML IV SCH ×3 (00:53→23:45)
[2016-03-27] MEDS: PIPERACILLIN-TAZOB 3.375GM/D5W100ML IV SCH ×4 (03:18→22:10)
[2016-03-27 04:43] LABS: Basophils # (auto) 0.1 uL; Basophils % (auto) 0.3 % (0.0-2.0); Eosinophils # (auto) 0 uL; Hematocrit 31.5 % (36.0-46.0); Lymphocytes # (auto) 1.6 uL; Lymphocytes % (auto) 7.3 % (10.0-50.0); Mean Corpuscular Hemoglobin 31.8 pg (28.0-32.0); Mean Corpuscular Hgb Conc. 31.6 g/dL (32.0-36.0); Mean Corpuscular Volume 100.3 fL (80.0-100.0); Mean Platelet Volume 7.9 fL (7.4-10.4); Monocytes # (auto) 1.2 uL; Monocytes % (auto) 5.2 % (0.0-12.0); Neutrophils # (auto) 19.5 uL; Neutrophils % (auto) 87.2 % (37.0-80.0); Platelet Count (auto) 229 10^3/uL (140-450); Red Cell Distribution Width 15.2 % (11.6-16.0); SUSPECT VIEW TRANSMISSION; White Blood Cell 22.3 10^3/uL (4.4-10.8)
[2016-03-27 04:56] LABS: BUN/Creatinine Ratio 45.6; Calcium 8.4 mg/dL (8.5-10.1); Potassium 3.3 mmol/L (3.5-5.1)
[2016-03-27] MEDS: ACCU-CHEK COMFORT CURVE STRIP VI SCH ×5 (05:31→23:41)
[2016-03-27] MEDS: ALBUMIN 25% 50 ML IV SCH ×3 (06:00→21:15)
[2016-03-27] MEDS: FUROSEMIDE 40 MG/4 ML VIAL IV SCH ×2 (07:05→18:11)
[2016-03-27] MEDS: FREE WATER GT SCH ×3 (07:05→23:41)
[2016-03-27] MEDS: InsuLIN REG 1unit/0.01ml Soln (100units/ml) SC SCH ×5 (07:42→23:43)
[2016-03-27] MEDS: LACTULOSE 20Gm/30ML SOLN PO SCH ×3 (07:59→18:11)
[2016-03-27] MEDS: IPRATROPIUM BROM 0.5 MG/2.5ML INH SOL NEB SCH ×4 (09:53→18:40)
[2016-03-27] MEDS: ALBUTEROL SULF 2.5 MG/0.5ML(0.5%) NEB SOLN NEB SCH ×4 (09:54→18:40)
[2016-03-27] MEDS: APIXABAN 2.5 MG TAB PO SCH ×2 (11:15→23:30)
[2016-03-27] MEDS: CLOPIDOGREL BISULFATE 75 MG TAB PO SCH ×2 (11:15→13:32)
[2016-03-27] MEDS: ENALAPRIL MALEATE 2.5 MG TAB PO SCH ×2 (11:15→23:30)
[2016-03-27] MEDS: ASPirin-EC 81 mg tab PO SCH (11:15)
[2016-03-27] MEDS: CARVEDILOL 3.125 MG TAB PO SCH ×2 (11:15→23:30)
[2016-03-27] MEDS: FLUCONAZOLE 200MG/100ML 100 ML IV SCH (14:44)
[2016-03-27] MEDS: AMIODARONE HCL 900 MG in DEXTROSE 500 ML IV SCH (17:13)
[2016-03-28] VITALS (58 sets, daily range): BP systolic 78–127; BP diastolic 37–77
[2016-03-28] MEDS ORDERED: DEXTROSE (50%) 50ML SYRG IV SCH
[2016-03-28] MEDS: PIPERACILLIN-TAZOB 3.375GM/D5W100ML IV SCH ×4 (03:00→21:00)
[2016-03-28] MEDS ORDERED: PIPERACILLIN-TAZOB 3.375GM 100 ML IV ONE (03:47)
[2016-03-28 04:23] LABS: Hematocrit 29.3 % (36.0-46.0); Hemoglobin 9.4 g/dL (12.2-16.2); Mean Corpuscular Hemoglobin 32.2 pg (28.0-32.0); Mean Corpuscular Volume 100.8 fL (80.0-100.0); Mean Platelet Volume 8.1 fL (7.4-10.4); Platelet Count (auto) 190 10^3/uL (140-450); Red Cell Distribution Width 15.9 % (11.6-16.0); SUSPECT VIEW TRANSMISSION; White Blood Cell 20.9 10^3/uL (4.4-10.8)
[2016-03-28 04:45] LABS: Albumin 3.1 g/dL (3.4-5.0); BUN/Creatinine Ratio 40.8; Potassium 3.2 mmol/L (3.5-5.1)
[2016-03-28 04:48] LABS: Bilirubin, Total 0.9 mg/dL (0.2-1.0); Total Protein 5.7 g/dL (6.4-8.2)
[2016-03-28 05:22] LABS: Metamyelocytes % 0; Myelocytes % 0; Promyelocytes % 0; Reactive Lymphocytes 0
[2016-03-28] MEDS: LACTULOSE 20Gm/30ML SOLN PO SCH ×4 (06:00→18:11)
[2016-03-28] MEDS: FUROSEMIDE 40 MG/4 ML VIAL IV SCH (06:00)
[2016-03-28] MEDS: ACCU-CHEK COMFORT CURVE STRIP VI SCH ×7 (06:00→18:11)
[2016-03-28] MEDS: InsuLIN REG 1unit/0.01ml Soln (100units/ml) SC SCH ×7 (06:00→18:19)
[2016-03-28] MEDS: ALBUTEROL SULF 2.5 MG/0.5ML(0.5%) NEB SOLN NEB SCH ×2 (06:26→13:21)
[2016-03-28] MEDS: IPRATROPIUM BROM 0.5 MG/2.5ML INH SOL NEB SCH ×2 (06:26→13:21)
[2016-03-28] MEDS: FREE WATER GT SCH ×2 (06:27→12:00)
[2016-03-28] MEDS: ALBUMIN 25% 50 ML IV SCH ×2 (06:28→14:44)
[2016-03-28 08:12] LABS: Platelet Estimate Adequate; RBC Morphology Normal
[2016-03-28] MEDS: ASPirin-EC 81 mg tab PO SCH (09:36)
[2016-03-28] MEDS: APIXABAN 2.5 MG TAB PO SCH ×2 (09:36→22:00)
[2016-03-28] MEDS: CARVEDILOL 3.125 MG TAB PO SCH (09:36)
[2016-03-28] MEDS: CLOPIDOGREL BISULFATE 75 MG TAB PO SCH (09:36)
[2016-03-28] MEDS: ENALAPRIL MALEATE 2.5 MG TAB PO SCH (09:37)
[2016-03-28] MEDS: DOXYCYCLINE HYC 100MG/250ML 250 ML IV SCH (12:00)
[2016-03-28] MEDS: FLUCONAZOLE 200MG/100ML 100 ML IV SCH (14:44)
[2016-03-28] MEDS ORDERED: POTASSIUM CHL 20MEQ/100ML 100 ML IV ONE (18:00)
[2016-03-28] MEDS: SODIUM CHLORIDE 0.9% 1,000 ML IV SCH (18:11)
[2016-03-28] MEDS ORDERED: TPN PER PHARMACY 0 ML IV SCH (18:30)
[2016-03-28 18:57] LABS: Magnesium 2.8 mg/dL (1.6-2.6); Phosphorus 3.7 mg/dL (2.6-4.90)
[2016-03-28] MEDS: AMINO ACID INFUSION IN D10W 1,000 ML IV NR (20:00)
[2016-03-29] VITALS (90 sets, daily range): BP systolic 77–133; BP diastolic 34–91
[2016-03-29] MEDS: InsuLIN REG 1unit/0.01ml Soln (100units/ml) SC SCH ×4 (00:34→17:59)
[2016-03-29] MEDS: PIPERACILLIN-TAZOB 3.375GM/D5W100ML IV SCH ×2 (03:00→09:00)
[2016-03-29] MEDS ORDERED: AMIODARONE HCL 900 MG IV ONE (05:49)
[2016-03-29] MEDS: LACTULOSE 20Gm/30ML SOLN PO SCH ×4 (06:00→17:56)
[2016-03-29] MEDS: ACCU-CHEK COMFORT CURVE STRIP VI SCH ×4 (06:20→17:45)
[2016-03-29 07:46] LABS: DEFINITIVE VIEW TRANSMISSION; Hematocrit 33.7 % (36.0-46.0); Hemoglobin 10.7 g/dL (12.2-16.2); Mean Corpuscular Hemoglobin 32.2 pg (28.0-32.0); Mean Corpuscular Hgb Conc. 31.7 g/dL (32.0-36.0); Mean Corpuscular Volume 101.6 fL (80.0-100.0); Mean Platelet Volume 8.8 fL (7.4-10.4); Platelet Count (auto) 215 10^3/uL (140-450); Red Cell Distribution Width 14.9 % (11.6-16.0); SUSPECT VIEW TRANSMISSION; White Blood Cell 21.9 10^3/uL (4.4-10.8)
[2016-03-29 07:48] LABS: Albumin 3.5 g/dL (3.4-5.0); BUN/Creatinine Ratio 48.8; Calcium 8.9 mg/dL (8.5-10.1); Magnesium 2.9 mg/dL (1.6-2.6); Phosphorus 2.6 mg/dL (2.6-4.90); Total Protein 6.2 g/dL (6.4-8.2)
[2016-03-29 07:49] LABS: Metamyelocytes % 0; Myelocytes % 0; Promyelocytes % 0; Reactive Lymphocytes 0
[2016-03-29 07:50] LABS: Potassium 2.9 mmol/L (3.5-5.1)
[2016-03-29] MEDS: POTASSIUM CHL 20MEQ/100ML 100 ML IV SCH ×2 (09:00→10:43)
[2016-03-29 09:33] LABS: Anisocytosis Slight; Platelet Estimate Adequate
[2016-03-29] MEDS: CLOPIDOGREL BISULFATE 75 MG TAB PO SCH (10:43)
[2016-03-29] MEDS: APIXABAN 2.5 MG TAB PO SCH ×2 (10:43→22:05)
[2016-03-29] MEDS: ASPirin-EC 81 mg tab PO SCH (10:43)
[2016-03-29] MEDS: PRO-STAT 64 30ML PO SCH (10:44)
[2016-03-29] MEDS ORDERED: POTASSIUM CHL 20MEQ/100ML 100 ML IV SCH (12:30)
[2016-03-29] MEDS ORDERED: NOREPINEPHRINE BITARTRATE 1 ML IV ONE (12:58)
[2016-03-29] MEDS: FLUCONAZOLE 200MG/100ML 100 ML IV SCH (13:18)
[2016-03-29] MEDS ORDERED: LEVOFLOXACIN 500MG 100 ML IV SCH (13:46)
[2016-03-29] MEDS ORDERED: SUCCINYLCHOLINE CHLORIDE 20 MG/ML 10ML VIAL IV ONE (14:54)
[2016-03-29] MEDS ORDERED: ETOMIDATE (2MG/ML) 20ML VIAL IV ONE (14:55)
[2016-03-29] MEDS ORDERED: MIDAZOLAM HCL 1MG/1ML-2 ML VIAL ONE (14:55)
[2016-03-29] MEDS: NOREPINEPHRINE BITARTRATE 250 ML IV SCH (15:25)
[2016-03-29] MEDS ORDERED: FUROSEMIDE 40 MG/4 ML VIAL IV ONE (15:30)
[2016-03-29] MEDS: SODIUM CHLORIDE 0.9% 1,000 ML IV SCH (15:37)
[2016-03-29] MEDS: fentaNYL Drip 2500mCg/250mlNS 250 ML IV SCH (15:43)
[2016-03-29] MEDS ORDERED: fentaNYL Drip 2500mCg/250mlNS 250 ML IV ONE (15:46)
[2016-03-29] MEDS ORDERED: LEVOFLOXACIN 500MG 100 ML IV ONE (18:00)
[2016-03-29] MEDS ORDERED: TPN PER PHARMACY IV NR ×9 (20:00)
[2016-03-29] MEDS: MIDAZOLAM DRIP 100 mg/100mL NS 100 ML IV SCH (21:33)
[2016-03-29] MEDS: AMINO ACID INFUSION IN D10W 1,000 ML IV NR (21:34)
[2016-03-30] VITALS (103 sets, daily range): BP systolic 87–120; BP diastolic 47–82
[2016-03-30] MEDS ORDERED: AMIODARONE HCL 900 MG in DEXTROSE 500 ML IV SCH ×2 (01:03→20:25)
[2016-03-30] MEDS: fentaNYL Drip 2500mCg/250mlNS 250 ML IV SCH (01:45)
[2016-03-30] MEDS: MIDAZOLAM DRIP 100 mg/100mL NS 100 ML IV SCH ×2 (01:46→18:22)
[2016-03-30 04:18] LABS: Albumin 2.9 g/dL (3.4-5.0); BUN/Creatinine Ratio 56.5; Bilirubin, Total 0.8 mg/dL (0.2-1.0); Calcium 8.7 mg/dL (8.5-10.1); Magnesium 2.6 mg/dL (1.6-2.6); Phosphorus 1.2 mg/dL (2.6-4.90); Total Protein 5.6 g/dL (6.4-8.2)
[2016-03-30 04:37] LABS: B-Type Natriuretic Peptide 1973.83 pg/mL (0-100); Potassium 2.4 mmol/L (3.5-5.1); Temperature: 22.7 C (20.0-25.0)
[2016-03-30] MEDS: InsuLIN REG 1unit/0.01ml Soln (100units/ml) SC SCH ×4 (06:00→17:23)
[2016-03-30] MEDS: ACCU-CHEK COMFORT CURVE STRIP VI SCH ×5 (06:00→23:04)
[2016-03-30] MEDS: LACTULOSE 20Gm/30ML SOLN PO SCH ×3 (06:00→12:00)
[2016-03-30] MEDS: POTASSIUM CHL 20MEQ/100ML 100 ML IV SCH ×4 (07:35→19:00)
[2016-03-30] MEDS: SODIUM CHLORIDE 0.9% 1,000 ML IV SCH (09:59)
[2016-03-30] MEDS ORDERED: LEVOFLOXACIN 500MG 100 ML IV SCH (10:00)
[2016-03-30] MEDS: APIXABAN 2.5 MG TAB PO SCH ×2 (10:27→21:53)
[2016-03-30] MEDS: CLOPIDOGREL BISULFATE 75 MG TAB PO SCH (10:27)
[2016-03-30] MEDS: ASPirin-EC 81 mg tab PO SCH (10:27)
[2016-03-30] MEDS: PRO-STAT 64 30ML PO SCH (10:28)
[2016-03-30] MEDS ORDERED: POTASSIUM PHOSPHATE 44 MEQ in NS 0.9% 250 ML IV ONE (10:30)
[2016-03-30] MEDS: NOREPINEPHRINE BITARTRATE 250 ML IV SCH (12:22)
[2016-03-30] MEDS: FLUCONAZOLE 200MG/100ML 100 ML IV SCH (14:36)
[2016-03-30] MEDS ORDERED: POTASSIUM CHL 10% (20 MEQ/15ML) ORAL SOLN GT ONE (15:00)
[2016-03-30] MEDS ORDERED: cefTAZidime 1 GM in D5W 5% 50 ML IV ONE (15:00)
[2016-03-30] MEDS ORDERED: Fibersource Hn 1 Liter GT SCH (15:00)
[2016-03-30] MEDS ORDERED: VANCOMYCIN PER PHARMACY 0 MG IV SCH (15:00)
[2016-03-30] MEDS ORDERED: PANTOPRAZOLE SODIUM 40 MG/10 ML VIAL IV ONE (15:15)
[2016-03-30] MEDS: FREE WATER GT SCH ×2 (16:48→21:53)
[2016-03-30] MEDS: VANCOMYCIN 1GM/250ML D5W 250 ML IV SCH (16:48)
[2016-03-30] MEDS ORDERED: TPN PER PHARMACY IV NR ×9 (20:00)
[2016-03-30] MEDS: METOCLOPRAMIDE HCL 5MG/ml INJ 2ml VIAL IV SCH (23:04)
[2016-03-30] MEDS: cefTAZidime 1 GM in D5W 5% 50 ML IV SCH (23:05)
[2016-03-31] VITALS (103 sets, daily range): BP systolic 86–116; BP diastolic 38–73
[2016-03-31] MEDS: InsuLIN REG 1unit/0.01ml Soln (100units/ml) SC SCH ×4 (00:15→18:00)
[2016-03-31] MEDS: FREE WATER GT SCH ×6 (02:09→21:51)
[2016-03-31 04:12] LABS: DEFINITIVE VIEW TRANSMISSION; Hematocrit 32.2 % (36.0-46.0); Hemoglobin 10.1 g/dL (12.2-16.2); Mean Corpuscular Hemoglobin 32.2 pg (28.0-32.0); Mean Corpuscular Hgb Conc. 31.3 g/dL (32.0-36.0); Mean Corpuscular Volume 102.8 fL (80.0-100.0); Mean Platelet Volume 9.3 fL (7.4-10.4); Platelet Count (auto) 195 10^3/uL (140-450); Red Cell Distribution Width 17.1 % (11.6-16.0); SUSPECT VIEW TRANSMISSION; White Blood Cell 17.1 10^3/uL (4.4-10.8)
[2016-03-31 04:21] LABS: Myelocytes % 0; Promyelocytes % 0; Reactive Lymphocytes 0
[2016-03-31 05:03] LABS: Albumin 2.5 g/dL (3.4-5.0); BUN/Creatinine Ratio 51.8; Bilirubin, Total 0.6 mg/dL (0.2-1.0); Calcium 8.8 mg/dL (8.5-10.1); Magnesium 2.6 mg/dL (1.6-2.6); Phosphorus 2.8 mg/dL (2.6-4.90); Potassium 4.1 mmol/L (3.5-5.1); Total Protein 5.2 g/dL (6.4-8.2)
[2016-03-31 05:07] LABS: B-Type Natriuretic Peptide 822.8 pg/mL (0-100); Temperature: 22.5 C (20.0-25.0)
[2016-03-31] MEDS: POTASSIUM CHL 20MEQ/100ML 100 ML IV SCH (05:10)
[2016-03-31] MEDS: ACCU-CHEK COMFORT CURVE STRIP VI SCH ×4 (05:31→23:58)
[2016-03-31] MEDS: METOCLOPRAMIDE HCL 5MG/ml INJ 2ml VIAL IV SCH ×3 (05:31→21:46)
[2016-03-31 05:43] LABS: Metamyelocytes % 1
[2016-03-31 05:44] LABS: Anisocytosis Slight; Macrocytosis Slight; Platelet Estimate Adequate; Polychromasia Slight
[2016-03-31] MEDS: cefTAZidime 1 GM in D5W 5% 50 ML IV SCH ×3 (06:52→23:00)
[2016-03-31] MEDS: PRO-STAT 64 30ML PO SCH (10:00)
[2016-03-31] MEDS: CLOPIDOGREL BISULFATE 75 MG TAB PO SCH (10:17)
[2016-03-31] MEDS: APIXABAN 2.5 MG TAB PO SCH ×2 (10:17→21:50)
[2016-03-31] MEDS: MIDAZOLAM DRIP 100 mg/100mL NS 100 ML IV SCH (10:17)
[2016-03-31] MEDS: PANTOPRAZOLE SODIUM 40 MG/10 ML VIAL IV SCH (10:17)
[2016-03-31] MEDS: ASPirin-EC 81 mg tab PO SCH (10:17)
[2016-03-31] MEDS: FLUCONAZOLE 200MG/100ML 100 ML IV SCH (13:40)
[2016-03-31] MEDS: fentaNYL Drip 2500mCg/250mlNS 250 ML IV SCH (13:54)
[2016-03-31] MEDS: VANCOMYCIN 1GM/250ML D5W 250 ML IV SCH (17:00)
[2016-03-31] MEDS ORDERED: TPN PER PHARMACY IV NR ×16 (20:00)
[2016-03-31] MEDS: NOREPINEPHRINE BITARTRATE 250 ML IV SCH (21:51)
[2016-04-01] VITALS (103 sets, daily range): BP systolic 87–142; BP diastolic 47–77
[2016-04-01] MEDS: FREE WATER GT SCH ×6 (02:00→21:55)
[2016-04-01 03:57] LABS: DEFINITIVE VIEW TRANSMISSION; Hematocrit 30.6 % (36.0-46.0); Hemoglobin 9.7 g/dL (12.2-16.2); Mean Corpuscular Hemoglobin 32.5 pg (28.0-32.0); Mean Corpuscular Hgb Conc. 31.6 g/dL (32.0-36.0); Mean Platelet Volume 9.6 fL (7.4-10.4); Platelet Count (auto) 179 10^3/uL (140-450); SUSPECT VIEW TRANSMISSION; White Blood Cell 13.1 10^3/uL (4.4-10.8)
[2016-04-01 04:04] LABS: Metamyelocytes % 0; Promyelocytes % 0; Reactive Lymphocytes 0
[2016-04-01 04:06] LABS: Albumin 2.3 g/dL (3.4-5.0); Calcium 8.3 mg/dL (8.5-10.1); Magnesium 2.4 mg/dL (1.6-2.6); Potassium 4.4 mmol/L (3.5-5.1)
[2016-04-01 04:09] LABS: BUN/Creatinine Ratio 42.5; Bilirubin, Total 0.9 mg/dL (0.2-1.0); Total Protein 5.2 g/dL (6.4-8.2)
[2016-04-01 04:24] LABS: Phosphorus 2.9 mg/dL (2.6-4.90)
[2016-04-01 04:36] LABS: B-Type Natriuretic Peptide 866.47 pg/mL (0-100)
[2016-04-01 04:37] LABS: Temperature: 21.9 C (20.0-25.0)
[2016-04-01 04:42] LABS: Myelocytes % 1
[2016-04-01 04:43] LABS: Anisocytosis Slight; Basophilic Stippling FEW; Macrocytosis Slight; Platelet Estimate Adequate; Polychromasia Slight
[2016-04-01] MEDS: ACCU-CHEK COMFORT CURVE STRIP VI SCH ×3 (06:00→17:35)
[2016-04-01] MEDS: cefTAZidime 1 GM in D5W 5% 50 ML IV SCH ×3 (06:46→21:55)
[2016-04-01] MEDS: METOCLOPRAMIDE HCL 5MG/ml INJ 2ml VIAL IV SCH ×3 (06:47→21:55)
[2016-04-01] MEDS: MIDAZOLAM DRIP 100 mg/100mL NS 100 ML IV SCH (07:00)
[2016-04-01] MEDS: InsuLIN REG 1unit/0.01ml Soln (100units/ml) SC SCH ×4 (07:03→17:35)
[2016-04-01] MEDS: PANTOPRAZOLE SODIUM 40 MG/10 ML VIAL IV SCH (11:13)
[2016-04-01] MEDS: CLOPIDOGREL BISULFATE 75 MG TAB PO SCH (11:14)
[2016-04-01] MEDS: PRO-STAT 64 30ML PO SCH (11:14)
[2016-04-01] MEDS: APIXABAN 2.5 MG TAB PO SCH ×2 (11:14→21:55)
[2016-04-01] MEDS: ASPirin-EC 81 mg tab PO SCH (11:14)
[2016-04-01] MEDS ORDERED: FUROSEMIDE 20 MG/2 ML VIAL IV ONE (11:15)
[2016-04-01] MEDS ORDERED: DEXTROSE (50%) 50ML SYRG IV PRN (11:30)
[2016-04-01] MEDS ORDERED: Fibersource Hn 1 Liter GT SCH (12:00)
[2016-04-01] MEDS: FLUCONAZOLE 200MG/100ML 100 ML IV SCH (15:05)
[2016-04-01] MEDS: VANCOMYCIN 1GM/250ML D5W 250 ML IV SCH (17:30)
[2016-04-01] MEDS: NOREPINEPHRINE BITARTRATE 250 ML IV SCH (19:30)
[2016-04-01] MEDS ORDERED: TPN PER PHARMACY IV NR ×8 (20:00)
[2016-04-02] VITALS (105 sets, daily range): BP systolic 86–131; BP diastolic 47–82
[2016-04-02] MEDS: ACCU-CHEK COMFORT CURVE STRIP VI SCH ×4 (00:05→17:33)
[2016-04-02] MEDS: InsuLIN REG 1unit/0.01ml Soln (100units/ml) SC SCH ×5 (00:09→23:58)
[2016-04-02] MEDS: MIDAZOLAM DRIP 100 mg/100mL NS 100 ML IV SCH ×2 (01:49→20:57)
[2016-04-02] MEDS: FREE WATER GT SCH ×6 (01:50→22:24)
[2016-04-02 03:52] LABS: Basophils # (auto) 0 uL; Basophils % (auto) 0.1 % (0.0-2.0); DEFINITIVE VIEW TRANSMISSION; Eosinophils # (auto) 0 uL; Eosinophils % (auto) 0.2 % (0.0-7.0); Hematocrit 30.5 % (36.0-46.0); Hemoglobin 9.8 g/dL (12.2-16.2); Lymphocytes # (auto) 1.3 uL; Lymphocytes % (auto) 8.7 % (10.0-50.0); Mean Corpuscular Hemoglobin 32.5 pg (28.0-32.0); Mean Corpuscular Volume 101.6 fL (80.0-100.0); Mean Platelet Volume 10.3 fL (7.4-10.4); Monocytes # (auto) 1.3 uL; Neutrophils # (auto) 12.1 uL; Platelet Count (auto) 191 10^3/uL (140-450); Red Cell Distribution Width 17.7 % (11.6-16.0); White Blood Cell 14.7 10^3/uL (4.4-10.8)
[2016-04-02 04:07] LABS: Albumin 2.3 g/dL (3.4-5.0); Bilirubin, Total 1.7 mg/dL (0.2-1.0); Calcium 8.5 mg/dL (8.5-10.1); Magnesium 2.4 mg/dL (1.6-2.6); Phosphorus 2.5 mg/dL (2.6-4.90); Potassium 4.8 mmol/L (3.5-5.1); Total Protein 5.4 g/dL (6.4-8.2)
[2016-04-02] MEDS: cefTAZidime 1 GM in D5W 5% 50 ML IV SCH ×3 (06:17→23:15)
[2016-04-02] MEDS: METOCLOPRAMIDE HCL 5MG/ml INJ 2ml VIAL IV SCH ×3 (06:17→22:23)
[2016-04-02] MEDS: PRO-STAT 64 30ML PO SCH (10:06)
[2016-04-02] MEDS: CLOPIDOGREL BISULFATE 75 MG TAB PO SCH (10:06)
[2016-04-02] MEDS: ASPirin-EC 81 mg tab PO SCH (10:06)
[2016-04-02] MEDS: PANTOPRAZOLE SODIUM 40 MG/10 ML VIAL IV SCH (10:06)
[2016-04-02] MEDS: APIXABAN 2.5 MG TAB PO SCH ×2 (10:06→22:24)
[2016-04-02] MEDS: NOREPINEPHRINE BITARTRATE 250 ML IV SCH (12:20)
[2016-04-02] MEDS: FLUCONAZOLE 200MG/100ML 100 ML IV SCH (14:25)
[2016-04-02] MEDS: VANCOMYCIN 1GM/250ML D5W 250 ML IV SCH (17:20)
[2016-04-02] MEDS: ACETAMINOPHEN 650 mg PER 20 mL UD GT PRN (22:36)
[2016-04-03] VITALS (105 sets, daily range): BP systolic 84–130; BP diastolic 46–80
[2016-04-03] MEDS: FREE WATER GT SCH ×6 (02:15→21:52)
[2016-04-03 03:40] LABS: Basophils # (auto) 0 uL; Basophils % (auto) 0.3 % (0.0-2.0); Eosinophils # (auto) 0 uL; Eosinophils % (auto) 0.4 % (0.0-7.0); Hemoglobin 9.1 g/dL (12.2-16.2); Lymphocytes # (auto) 1.6 uL; Mean Corpuscular Hemoglobin 32.4 pg (28.0-32.0); Mean Corpuscular Hgb Conc. 32.4 g/dL (32.0-36.0); Mean Platelet Volume 10.4 fL (7.4-10.4); Monocytes # (auto) 1.1 uL; Monocytes % (auto) 8.3 % (0.0-12.0); Neutrophils # (auto) 10.7 uL; Red Cell Distribution Width 17.6 % (11.6-16.0); White Blood Cell 13.5 10^3/uL (4.4-10.8)
[2016-04-03 03:42] LABS: Platelet Count (auto) 191 10^3/uL (140-450)
[2016-04-03 03:55] LABS: BUN/Creatinine Ratio 36.8; Potassium 4.5 mmol/L (3.5-5.1)
[2016-04-03] MEDS: VANCOMYCIN 1GM/250ML D5W 250 ML IV SCH ×2 (05:14→17:00)
[2016-04-03] MEDS: METOCLOPRAMIDE HCL 5MG/ml INJ 2ml VIAL IV SCH ×3 (05:45→21:39)
[2016-04-03] MEDS: InsuLIN REG 1unit/0.01ml Soln (100units/ml) SC SCH ×3 (06:17→17:33)
[2016-04-03] MEDS: ACCU-CHEK COMFORT CURVE STRIP VI SCH ×4 (06:22→17:00)
[2016-04-03] MEDS: cefTAZidime 1 GM in D5W 5% 50 ML IV SCH ×3 (06:41→23:01)
[2016-04-03] MEDS: ACETAMINOPHEN 650 mg PER 20 mL UD GT PRN ×2 (06:52→13:09)
[2016-04-03] MEDS: PANTOPRAZOLE SODIUM 40 MG/10 ML VIAL IV SCH (09:25)
[2016-04-03] MEDS: APIXABAN 2.5 MG TAB PO SCH ×2 (09:26→21:39)
[2016-04-03] MEDS: ASPirin-EC 81 mg tab PO SCH (09:26)
[2016-04-03] MEDS: CLOPIDOGREL BISULFATE 75 MG TAB PO SCH (09:26)
[2016-04-03] MEDS: PRO-STAT 64 30ML PO SCH (09:28)
[2016-04-03] MEDS ORDERED: FUROSEMIDE 40 MG/4 ML VIAL ONE (11:13)
[2016-04-03] MEDS ORDERED: FUROSEMIDE 40 MG/4 ML VIAL IV ONE (12:00)
[2016-04-03] MEDS: NOREPINEPHRINE BITARTRATE 250 ML IV SCH (12:47)
[2016-04-03] MEDS: FLUCONAZOLE 200MG/100ML 100 ML IV SCH (14:07)
[2016-04-03] MEDS ORDERED: MIDAZOLAM HCL 1MG/1ML-2 ML VIAL IV PRN (16:45)
[2016-04-04] VITALS (87 sets, daily range): BP systolic 86–123; BP diastolic 39–73
[2016-04-04] MEDS: ACCU-CHEK COMFORT CURVE STRIP VI SCH ×4 (00:10→17:50)
[2016-04-04] MEDS: ACETAMINOPHEN 650 mg PER 20 mL UD GT PRN ×2 (00:37→21:30)
[2016-04-04] MEDS: FREE WATER GT SCH ×4 (02:00→14:03)
[2016-04-04 04:19] LABS: Basophils # (auto) 0 uL; Basophils % (auto) 0.1 % (0.0-2.0); Eosinophils # (auto) 0.1 uL; Eosinophils % (auto) 0.4 % (0.0-7.0); Hematocrit 27.1 % (36.0-46.0); Hemoglobin 8.6 g/dL (12.2-16.2); Lymphocytes # (auto) 1.4 uL; Lymphocytes % (auto) 10.5 % (10.0-50.0); Mean Corpuscular Hemoglobin 31.9 pg (28.0-32.0); Mean Corpuscular Hgb Conc. 31.8 g/dL (32.0-36.0); Mean Corpuscular Volume 100.1 fL (80.0-100.0); Mean Platelet Volume 10.6 fL (7.4-10.4); Monocytes # (auto) 1.2 uL; Neutrophils # (auto) 10.4 uL; Platelet Count (auto) 172 10^3/uL (140-450); Red Cell Distribution Width 18.4 % (11.6-16.0)
[2016-04-04 04:48] LABS: BUN/Creatinine Ratio 38.8
[2016-04-04] MEDS: VANCOMYCIN 1GM/250ML D5W 250 ML IV SCH ×2 (05:10→17:02)
[2016-04-04] MEDS: InsuLIN REG 1unit/0.01ml Soln (100units/ml) SC SCH ×4 (06:00→18:09)
[2016-04-04] MEDS: METOCLOPRAMIDE HCL 5MG/ml INJ 2ml VIAL IV SCH ×3 (06:12→22:00)
[2016-04-04] MEDS: cefTAZidime 1 GM in D5W 5% 50 ML IV SCH ×3 (06:54→23:00)
[2016-04-04] MEDS: PANTOPRAZOLE SODIUM 40 MG/10 ML VIAL IV SCH (09:27)
[2016-04-04] MEDS: ASPirin-EC 81 mg tab PO SCH (09:27)
[2016-04-04] MEDS: CLOPIDOGREL BISULFATE 75 MG TAB PO SCH (09:27)
[2016-04-04] MEDS: APIXABAN 2.5 MG TAB PO SCH ×2 (09:27→22:00)
[2016-04-04] MEDS: PRO-STAT 64 30ML PO SCH (09:27)
[2016-04-04] MEDS ORDERED: FUROSEMIDE 20 MG/2 ML VIAL IV ONE (11:30)
[2016-04-04] MEDS: FLUCONAZOLE 200MG/100ML 100 ML IV SCH (14:03)
[2016-04-04] MEDS: NOREPINEPHRINE BITARTRATE 250 ML IV SCH (14:04)
[2016-04-04] MEDS ORDERED: FUROSEMIDE 40 MG/4 ML VIAL IV ONE (14:30)
[2016-04-04] MEDS ORDERED: FUROSEMIDE 100 MG/10ML VIAL IV ONE (17:30)
[2016-04-04] MEDS ORDERED: POTASSIUM CHL 10% (20 MEQ/15ML) ORAL SOLN GT ONE (17:30)
[2016-04-05] VITALS (69 sets, daily range): BP systolic 82–138; BP diastolic 46–96
[2016-04-05] MEDS: ACCU-CHEK COMFORT CURVE STRIP VI SCH ×4 (00:25→17:34)
[2016-04-05] MEDS: InsuLIN REG 1unit/0.01ml Soln (100units/ml) SC SCH ×4 (00:27→18:14)
[2016-04-05] MEDS: VANCOMYCIN 1GM/250ML D5W 250 ML IV SCH ×2 (05:00→17:10)
[2016-04-05] MEDS: METOCLOPRAMIDE HCL 5MG/ml INJ 2ml VIAL IV SCH ×2 (06:03→13:49)
[2016-04-05] MEDS: cefTAZidime 1 GM in D5W 5% 50 ML IV SCH ×3 (06:03→23:00)
[2016-04-05 09:07] LABS: DEFINITIVE VIEW TRANSMISSION; Eosinophils # (auto) 0.1 uL; Lymphocytes # (auto) 1.4 uL; Mean Platelet Volume 10.6 fL (7.4-10.4); Monocytes % (auto) 9.3 % (0.0-12.0); Neutrophils # (auto) 8.2 uL; SUSPECT VIEW TRANSMISSION; White Blood Cell 10.7 10^3/uL (4.4-10.8)
[2016-04-05 09:11] LABS: Basophils # (auto) 0.1 uL; Basophils % (auto) 0.6 % (0.0-2.0); Eosinophils % (auto) 0.7 % (0.0-7.0); Hematocrit 26.4 % (36.0-46.0); Hemoglobin 8.4 g/dL (12.2-16.2); Lymphocytes % (auto) 12.7 % (10.0-50.0); Mean Corpuscular Hemoglobin 31.7 pg (28.0-32.0); Mean Corpuscular Hgb Conc. 31.7 g/dL (32.0-36.0); Neutrophils % (auto) 76.7 % (37.0-80.0); Platelet Count (auto) 190 10^3/uL (140-450); Red Cell Distribution Width 18.3 % (11.6-16.0)
[2016-04-05 09:26] LABS: BUN/Creatinine Ratio 40.3; Bilirubin, Total 0.8 mg/dL (0.2-1.0); Calcium 8.3 mg/dL (8.5-10.1); Potassium 3.7 mmol/L (3.5-5.1); Total Protein 5.8 g/dL (6.4-8.2)
[2016-04-05] MEDS ORDERED: POTASSIUM CHL 10% (20 MEQ/15ML) ORAL SOLN GT ONE (10:00)
[2016-04-05] MEDS ORDERED: FUROSEMIDE 100 MG/10ML VIAL IV ONE (10:00)
[2016-04-05] MEDS: PANTOPRAZOLE SODIUM 40 MG/10 ML VIAL IV SCH (11:08)
[2016-04-05] MEDS: APIXABAN 2.5 MG TAB PO SCH ×2 (11:09→22:00)
[2016-04-05] MEDS: CLOPIDOGREL BISULFATE 75 MG TAB PO SCH (11:09)
[2016-04-05] MEDS: PRO-STAT 64 30ML PO SCH (11:09)
[2016-04-05] MEDS: ASPirin-EC 81 mg tab PO SCH (11:09)
[2016-04-05] MEDS: FLUCONAZOLE 200MG/100ML 100 ML IV SCH (13:49)
[2016-04-05] MEDS: ACETAMINOPHEN 650 mg PER 20 mL UD GT PRN (13:49)
[2016-04-05] MEDS ORDERED: Fibersource Hn 1 Liter GT SCH (18:00)
[2016-04-05] MEDS: metroNIDAZOLE 500 MG TAB PO SCH (22:00)
[2016-04-06] VITALS (34 sets, daily range): BP systolic 78–145; BP diastolic 33–89
[2016-04-06] MEDS: ACCU-CHEK COMFORT CURVE STRIP VI SCH ×3 (01:45→11:56)
[2016-04-06] MEDS: ACETAMINOPHEN 650 mg PER 20 mL UD GT PRN (01:46)
[2016-04-06] MEDS: InsuLIN REG 1unit/0.01ml Soln (100units/ml) SC SCH ×4 (01:55→18:00)
[2016-04-06 03:46] LABS: Basophils # (auto) 0 uL; Basophils % (auto) 0.4 % (0.0-2.0); Eosinophils # (auto) 0 uL; Eosinophils % (auto) 0.4 % (0.0-7.0); Hematocrit 31.6 % (36.0-46.0); Lymphocytes # (auto) 0.6 uL; Lymphocytes % (auto) 5.2 % (10.0-50.0); Mean Corpuscular Hemoglobin 31.1 pg (28.0-32.0); Mean Corpuscular Hgb Conc. 31.6 g/dL (32.0-36.0); Mean Corpuscular Volume 98.4 fL (80.0-100.0); Mean Platelet Volume 10.3 fL (7.4-10.4); Monocytes % (auto) 8.6 % (0.0-12.0); Neutrophils # (auto) 10.4 uL; Neutrophils % (auto) 85.4 % (37.0-80.0); Platelet Count (auto) 193 10^3/uL (140-450); Red Cell Distribution Width 18.4 % (11.6-16.0); SUSPECT VIEW TRANSMISSION
[2016-04-06] MEDS: VANCOMYCIN 1GM/250ML D5W 250 ML IV SCH ×2 (05:00→19:43)
[2016-04-06] MEDS: metroNIDAZOLE 500 MG TAB PO SCH ×3 (06:00→21:47)
[2016-04-06] MEDS: cefTAZidime 1 GM in D5W 5% 50 ML IV SCH ×4 (07:00→23:01)
[2016-04-06] MEDS: MORPHINE SULF INJ 2 MG/ML SYRINGE 1ML IV PRN ×3 (08:22→20:39)
[2016-04-06] MEDS: CLOPIDOGREL BISULFATE 75 MG TAB PO SCH (10:00)
[2016-04-06] MEDS ORDERED: ASPirin-EC 81 mg tab PO SCH (10:00)
[2016-04-06] MEDS: PRO-STAT 64 30ML PO SCH (10:00)
[2016-04-06] MEDS: APIXABAN 2.5 MG TAB PO SCH ×2 (10:00→21:47)
[2016-04-06] MEDS: PANTOPRAZOLE SODIUM 40 MG/10 ML VIAL IV SCH (10:00)
[2016-04-06] MEDS: FLUCONAZOLE 200MG/100ML 100 ML IV SCH (14:00)
[2016-04-06] MEDS ORDERED: FUROSEMIDE 100 MG/10ML VIAL IV SCH (18:00)
[2016-04-06] MEDS ORDERED: POTASSIUM CHL 10% (20 MEQ/15ML) ORAL SOLN PO SCH (18:00)
[2016-04-07] VITALS: BP 61/34
[2016-04-07 00:23] VITALS: BP 67/25
[2016-04-07 01:00] VITALS: BP 67/25
[2016-04-07 01:30] VITALS: BP 67/24
== END 2016-04-07 06:56 | disposition expired | DRG 853 ==
LOC: ER 13:55 → TELE 13:56 → ICU WEST 18:45
PROVIDERS: ADMIT Internal Medicine; ATTEND Internal Medicine
PROC: 0BH17EZ Insertion of Endotracheal Airway into Trachea, Via Natural or Artificial Opening (ICD-10-PCS; principal; 2016-03-15)
PROC: 5A1955Z Respiratory Ventilation, Greater than 96 Consecutive Hours (ICD-10-PCS; 2016-03-15)
PROC: 027035Z Dilation of Coronary Artery, One Artery with Two Drug-eluting Intraluminal Devices, Percutaneous Approach (ICD-10-PCS; 2016-03-16)
PROC: 4A023N7 Measurement of Cardiac Sampling and Pressure, Left Heart, Percutaneous Approach (ICD-10-PCS; 2016-03-16)
PROC: B2111ZZ Fluoroscopy of Multiple Coronary Arteries using Low Osmolar Contrast (ICD-10-PCS; 2016-03-16)
PROC: 5A1223Z Performance of Cardiac Pacing, Continuous (ICD-10-PCS; 2016-03-16)
PROC: B41F1ZZ Fluoroscopy of Right Lower Extremity Arteries using Low Osmolar Contrast (ICD-10-PCS; 2016-03-16)
PROC: 02HV33Z Insertion of Infusion Device into Superior Vena Cava, Percutaneous Approach (ICD-10-PCS; 2016-03-26)
DX: A41.9 Sepsis, unspecified organism (principal); G93.49 Other encephalopathy; I21.4 Non-ST elevation (NSTEMI) myocardial infarction; I50.43 Acute on chronic combined systolic (congestive) and diastolic (congestive) heart failure; J18.9 Pneumonia, unspecified organism; J96.01 Acute respiratory failure with hypoxia; I63.9 Cerebral infarction, unspecified; E87.0 Hyperosmolality and hypernatremia; I13.0 Hypertensive heart and chronic kidney disease with heart failure and stage 1 through stage 4 chronic kidney disease, or unspecified chronic kidney disease; I69.351 Hemiplegia and hemiparesis following cerebral infarction affecting right dominant side; J44.0 Chronic obstructive pulmonary disease with (acute) lower respiratory infection; I48.1 Persistent atrial fibrillation; N28.0 Ischemia and infarction of kidney; I44.2 Atrioventricular block, complete; I46.9 Cardiac arrest, cause unspecified; I49.01 Ventricular fibrillation; I25.10 Atherosclerotic heart disease of native coronary artery without angina pectoris; I25.5 Ischemic cardiomyopathy; E87.6 Hypokalemia; I44.30 Unspecified atrioventricular block; E11.22 Type 2 diabetes mellitus with diabetic chronic kidney disease; I67.2 Cerebral atherosclerosis; E11.51 Type 2 diabetes mellitus with diabetic peripheral angiopathy without gangrene; I48.0 Paroxysmal atrial fibrillation; N18.3 Chronic kidney disease, stage 3 (moderate); K80.20 Calculus of gallbladder without cholecystitis without obstruction; I46.2 Cardiac arrest due to underlying cardiac condition; Z85.3 Personal history of malignant neoplasm of breast; Z86.79 Personal history of other diseases of the circulatory system; Z82.49 Family history of ischemic heart disease and other diseases of the circulatory system; Z79.82 Long term (current) use of aspirin; Z79.02 Long term (current) use of antithrombotics/antiplatelets; I25.2 Old myocardial infarction; Z79.4 Long term (current) use of insulin; Z66 Do not resuscitate
CPT/HCPCS: 31500; 36415; 36569; 36600; 51702; 70450; 70551; 71010; 71250; 76705; 76775; 80048; 80053; 80061; 80074; 80202; 81001; 82040; 82140; 82550; 82570; 82805; 82962; 83036; 83605; 83735; 83880; 84100; 84156; 84300; 84478; 84484; 85007; 85025; 85027; 85379; 85610; 85730; 86850; 86900; 86901; 86920; 87040; 87070; 87081; 87086; 87205; 92610; 92950; 93005; 93306; 93886; 93926; 93970; 94002; 94003; 94640; 94660; 95819; 97001; 99144; 99291; C1751; C1874; C9113; G0434; J0153; J0330; J0461; J0696; J1450; J1815; J1956; J2001; J2250; J2543; J2704; J3010; J3480; J3490; J7060; Q9967